=== PATIENT | male | born 1980 | race Caucasian/White ===

== ENCOUNTER 2017-04-15 10:05 | Emergency (ER) | payer BC ==
--- NOTE | 2017-04-15 10:55 | PDOC ---
History of Present Illness - General Chief Complaint: Injury Stated Complaint: LEFT SIDE RIB PAIN Time Seen by Provider: 04/15/17 10:08 History Source: Patient Exam Limitations: No Limitations - History of Present Illness Initial Comments: 04/15/17 10:54 This pt is a 36 yo M who presents to the ER with a complaint of left chest pain Pt states that he tripped in his garage and landed on his left chest He noted that the next day, his pain was severe and it worsened yesterday No shortness of breath No abdominal pain No vomiting No bruising noted PMH: denies PSH: denies Meds: denies ALL: NKDA Social: GENERAL/CONSTITUTIONAL: No: fever, chills, weakness, loss of appetite. HEAD, EYES, EARS, NOSE AND THROAT: No: change in vision, ear pain, discharge, sore throat, throat swelling. CARDIOVASCULAR: Yes: chest wall pain No: lightheadedness, palpitations, syncope RESPIRATORY: No: cough, shortness of breath, wheezing, hemoptysis, stridor. GASTROINTESTINAL: No: nausea, vomiting, diarrhea, abdominal cramping, rectal bleeding, constipation. GENITOURINARY: No: dysuria, hematuria, frequency, urgency, flank pain. MUSCULOSKELETAL: No: back pain, neck pain, joint pain, muscle swelling or pain SKIN : No: bruising NEUROLOGIC: No: headache, vertigo, paresthesias, weakness ENDOCRINE: No: unexplained weight gain or loss HEMATOLOGIC/LYMPHATIC: No: anemia, easy bleeding, swelling nodes. GENERAL: The patient is in no acute distress. HEAD: Normal with no signs of trauma. EYES: PERRLA, EOMI, sclera anicteric, conjunctiva clear. ENT: Ears normal, nares patent, oropharynx clear without exudates. Moist mucous membranes. NECK: Normal range of motion, supple without lymphadenopathy, JVD, or masses. LUNGS: Breath sounds equal, clear to auscultation bilaterally. No wheezes, and no crackles. Chest wall: tender to palpation HEART:Regular rate and rhythm, normal S1 and S2 without murmur, rub or gallop. ABDOMEN: Soft, no abdominal tenderness, No guarding, no rebound. No LUQ tenderness EXTREMITIES: Normal range of motion, no edema. No clubbing or cyanosis. No erythema, or tenderness. NEUROLOGICAL: Cranial nerves II through XII grossly intact. Normal speech. No focal neurological deficits. MUSCULOSKELETAL: Back non-tender to palpation, no CVA tenderness SKIN: No bruising 04/15/17 11:03 04/15/17 11:09 Past History - Past Medical History Allergies/Adverse Reactions: Allergies Allergy/AdvReac Type Severity Reaction Status Date / Time No Known Allergies Allergy Verified 04/15/17 10:06 Home Medications: Ambulatory Orders Acetaminophen W/ Codeine #3 [Tylenol # 3 -] 1 tab PO Q6H PRN #15 tablet MDD 4 Acetaminophen [Tylenol] 325 mg PO PRN PRN 04/15/17 Ibuprofen [Motrin -] 600 mg PO TID PRN #21 tablet 04/15/17 Methocarbamol [Robaxin -] 500 mg PO TID PRN #21 tablet 04/15/17 - Psycho/Social/Smoking Cessation Hx Anxiety: No Suicidal Ideation: No Smoking History: Current every day smoker Have you smoked in the past 12 months: No Number of Cigarettes Smoked Daily: 20 Hx Alcohol Use: Yes Substance Use Type: None ED Treatment Course - RADIOLOGY Radiology Studies Ordered: Category Date Time Status CHEST PA & LAT [RAD] Stat Radiology 04/15/17 10:08 Taken RIBS-LEFT SIDE [RAD] Stat Radiology 04/15/17 10:08 Taken Medical Decision Making - Medical Decision Making 04/15/17 11:10 Rib fracture vs Rib contusion Will do xray will give pain medications CXR: Non displaced fracture through the lateral aspect of the left 9th rib No hemothorax No pneumothorax Will discharge to home Given pain medications given incentive spirometer Will ask pt to follow up with pmd *DC/Admit/Observation/Transfer Diagnosis at time of Disposition: Closed rib fracture Qualifiers: Encounter type: initial encounter Rib fracture type: single rib Laterality: left Qualified Code(s): S22.32XA - Fracture of one rib, left side, initial encounter for closed fracture - Discharge Dispostion Disposition: HOME Condition at time of disposition: Stable Admit: No - Prescriptions Prescriptions: Ibuprofen [Motrin -] 600 mg PO TID PRN #21 tablet PRN Reason: Pain Methocarbamol [Robaxin -] 500 mg PO TID PRN #21 tablet PRN Reason: Pain Acetaminophen W/ Codeine #3 [Tylenol # 3 -] 1 tab PO Q6H PRN #15 tablet MDD 4 PRN Reason: Pain - Patient Instructions Printed Discharge Instructions: DI for Rib Fracture Additional Instructions: Please focus on taking deep breath (please use the incentive spirometer) Please take pain medications as prescribed Please return to the ER for fevers, chills, cough, shortness of breath, no improvement - Post Discharge Activity Work/School Note: Back to Work
[2017-04-15 11:09] VITALS: BP 156/90; PULSE 82; TEMP 98.3; BMI 27.3
[2017-04-15] MEDS ORDERED: IBUPROFEN 600 MG TABLET (FP) PO ONE ×2 (11:25→11:28)
== END 2017-04-15 11:37 | disposition home or self-care (01) ==
LOC: FER 10:05
DX: S22.32XA Fracture of one rib, left side, initial encounter for closed fracture (principal); W18.30XA Fall on same level, unspecified, initial encounter; Y93.89 Activity, other specified; Y92.008 Other place in unspecified non-institutional (private) residence as the place of occurrence of the external cause; F17.210 Nicotine dependence, cigarettes, uncomplicated
CPT/HCPCS: 71020-TC; 71101-TC; 99281-25

== ENCOUNTER 2023-05-12 12:45 | Emergency (ER) | payer BC ==
[2023-05-12 13:02] VITALS: BP 158/99; PULSE 90; RESP 18; TEMP 98.7; BMI 25.8
== END 2023-05-12 14:35 | disposition home or self-care (01) ==
LOC: FER 12:45
DX: M79.602 Pain in left arm (principal); S46.122A Laceration of muscle, fascia and tendon of long head of biceps, left arm, initial encounter; S50.01XA Contusion of right elbow, initial encounter; X50.0XXA Overexertion from strenuous movement or load, initial encounter; Y93.53 Activity, golf
CPT/HCPCS: 73060-TC-LT-FY; 73070-TC-LT-FY; 99283-25